=== PATIENT | female | born 1990 | race Caucasian/White ===

== ENCOUNTER 2024-01-01 09:47 | Outpatient (CLI) | payer MEDICAID, SELFPAY | END 2024-01-01 23:59 | disposition home or self-care (01) | LOC: LAB.DROPOF 01-02 09:47 | PROVIDERS: PCP Family Medicine; Visit Provider Family Medicine | DX: R30.0 Dysuria (principal); B96.4 Proteus (mirabilis) (morganii) as the cause of diseases classified elsewhere | CPT/HCPCS: 87086; 87088; 87186 ==